=== PATIENT | female | born 1995 | race Caucasian/White ===

== ENCOUNTER 2020-08-10 17:24 | Inpatient (IN) | payer BC, OTHER ==
[~2020-08-10] VITALS: Ht 170.2 cm; Wt 82.2 kg
[2020-08-11 12:49] VITALS: BP 129/73
[2020-08-11] MEDS ORDERED: FENTANYL PF 100 MCG/2ML IV PRN (13:00)
[2020-08-11] MEDS ORDERED: D5%-LACTATED RINGERS 1,000 ML IV SCH (13:00)
[2020-08-11] MEDS ORDERED: CALCIUM CARBONATE 500 MG TAB.CHEW PO PRN (13:00)
[2020-08-11] MEDS ORDERED: TERBUTALINE 1 MG/ML, 1ML SQ PRN (13:00)
[2020-08-11] MEDS ORDERED: ONDANSETRON 2MG/ML, 2ML IVPush PRN (13:00)
[2020-08-11] MEDS ORDERED: TERBUTALINE 1 MG/ML, 1ML IVPush PRN (13:00)
[2020-08-11] MEDS ORDERED: OXYTOCIN 30U/ 0.9% NaCL 500ML 500 ML IV ONE (13:00)
[2020-08-11] MEDS ORDERED: FENTANYL PF 100 MCG/2ML IVPush PRN (13:00)
[2020-08-11] MEDS ORDERED: MISOPROSTOL 25 MCG TABLET VG PRN (13:00)
[2020-08-11] MEDS ORDERED: CALC0.25 PO (13:02)
[2020-08-11] MEDS ORDERED: LEVO137T3 PO (13:03)
[2020-08-11] MEDS ORDERED: PREN1TAB62 PO (13:03)
[2020-08-11 13:18] LABS: BASOPHILS % (AUTO) 1 % (0-1); EOSINOPHILS % (AUTO) 1 % (1-7); LYMPHOCYTES % (AUTO) 22 % (22-44); MEAN CORPUSCULAR HEMOGLOBIN 25.8 pg (27.0-34.8); MEAN CORPUSCULAR HGB CONC 32.7 g/dL (32.4-35.8); MEAN PLATELET VOLUME 9.6 fL (7.4-10.4); MONOCYTES % (AUTO) 5 % (2-9); NEUTROPHILS % (AUTO) 71 % (42-75); PLATELET COUNT 252 x10^3/uL (130-400); RED BLOOD COUNT 4.05 x10^6/uL (3.82-5.3); RED CELL DISTRIBUTION WIDTH 16.9 % (9.6-15.2)
[2020-08-11 13:24] LABS: MD NO
[2020-08-11] MEDS: LACTATED RINGERS 1,000 ML IV SCH (13:30)
[2020-08-11] MEDS ORDERED: OXYTOCIN 30U/ 0.9% NaCL 500ML 500 ML ONE (15:51)
[2020-08-11] MEDS ORDERED: NEWBORN KIT ONE (15:51)
[2020-08-11] MEDS ORDERED: OXYTOCIN 30U/ 0.9% NaCL 500ML 500 ML IV PRN (16:00)
[2020-08-11] MEDS ORDERED: LIDOCAINE 1%, 20ML ONE (16:16)
[2020-08-11] MEDS ORDERED: MISOPROSTOL 200 MCG TABLET ONE (16:16)
[2020-08-11] MEDS ORDERED: LACTATED RINGERS 1,000 ML INTUTE SCH (19:30)
[2020-08-11] MEDS ORDERED: LACTATED RINGERS 1,000 ML INTUTE PRN (19:30)
[2020-08-12] MEDS ORDERED: METHYLERGONOVINE 0.2 MG/ML IM ONE
[2020-08-12] MEDS ORDERED: LIDOCAINE/PF 1.5% EPI 1:200K, 10 ML ONE (00:47)
[2020-08-12] MEDS ORDERED: FENTANYL/BUPIV./NS/PF 250 ML EPIDCONT ONE (00:47)
[2020-08-12] MEDS ORDERED: EPHEDRINE 50 MG/ML, 1ML ONE (01:16)
[2020-08-12] MEDS ORDERED: EPHEDRINE 50 MG/ML, 1ML IVPush PRN ×2 (01:30→02:00)
[2020-08-12] MEDS ORDERED: LACTATED RINGERS 1,000 ML IVBOLUS PRN ×2 (01:30→02:00)
[2020-08-12] MEDS ORDERED: FENTANYL/BUPIV./NS/PF 250 ML EPIDCONT SCH ×2 (01:30→02:00)
[2020-08-12] MEDS ORDERED: NALOXONE 0.4 MG/ML, 1ML IVPush PRN (02:00)
[2020-08-12] MEDS ORDERED: LACTATED RINGERS 1,000 ML IV SCH (02:00)
[2020-08-12] MEDS ORDERED: LIDOCAINE/MPF 2%-EPI 1:200K, 20 ML ONE ×4 (07:17→17:43)
[2020-08-12] MEDS ORDERED: SODIUM CITRATE/CITRIC ACID 15 ML UDC ONE (08:13)
[2020-08-12] MEDS ORDERED: METOCLOPRAMIDE 5 MG/ML, 2ML ONE (08:13)
[2020-08-12] MEDS ORDERED: GENTAMICIN 100 MG in SODIUM CHLORIDE 0.9% 100 ML IV SCH (12:41)
[2020-08-12] MEDS: LACTATED RINGERS 1,000 ML IV SCH ×3 (15:32→19:00)
[2020-08-12] MEDS ORDERED: ACETAMINOPHEN 325 MG TABLET ONE (15:44)
[2020-08-12] MEDS: AMPICILLIN 2 GM in SODIUM CHLORIDE 0.9% 100 ML IV SCH ×2 (15:47→22:35)
[2020-08-12] MEDS ORDERED: GENTAMICIN PER PHARMACY MC PRN (16:00)
[2020-08-12] MEDS ORDERED: ACETAMINOPHEN 325 MG TABLET PO PRN (16:00)
[2020-08-12] MEDS ORDERED: OXYTOCIN 30U/ 0.9% NaCL 500ML 500 ML ONE (16:08)
[2020-08-12] MEDS ORDERED: GENTAMICIN 140 MG in SODIUM CHLORIDE 0.9% 50 ML IV ONE (16:30)
[2020-08-12] MEDS ORDERED: CALCIUM CARBONATE 500 MG TAB.CHEW ONE (16:47)
[2020-08-12] MEDS ORDERED: ONDANSETRON 2MG/ML, 2ML ONE ×2 (16:49→17:39)
[2020-08-12] MEDS ORDERED: PHARMACOKINETIC CONSULTATION MC ONE (17:00)
[2020-08-12] MEDS ORDERED: PHARMACOKINETIC MONITORING MC PRN (17:00)
[2020-08-12] MEDS ORDERED: LACTATED RINGERS 1,000 ML IVBOLUS ONE (17:30)
[2020-08-12] MEDS ORDERED: AZITHROMYCIN 500 MG in SODIUM CHLORIDE 0.9% 250 ML IV ONE (17:30)
[2020-08-12] MEDS ORDERED: OXYTOCIN 10 UNITS/ML, 1ML ONE (17:39)
[2020-08-12] MEDS ORDERED: DEXAMETHASONE 4 MG/ML, 1ML ONE (17:39)
[2020-08-12] MEDS ORDERED: morphine SULFATE/PF 0.5 MG/ML, 10ML ONE (17:40)
[2020-08-12] MEDS ORDERED: KETAMINE 10 MG/ML, 20ML ONE (17:53)
[2020-08-12] MEDS ORDERED: METOCLOPRAMIDE 5 MG/ML, 2ML IV ONE (18:00)
[2020-08-12] MEDS ORDERED: SODIUM CITRATE/CITRIC ACID 30 ML UDC PO ONE (18:00)
[2020-08-12] MEDS ORDERED: KETOROLAC 30 MG/1 ML IM SCH (19:00)
[2020-08-12] MEDS ORDERED: GLYCERIN ADULT SUPP PR PRN (19:00)
[2020-08-12] MEDS ORDERED: ONDANSETRON 2MG/ML, 2ML IV PRN (19:00)
[2020-08-12] MEDS ORDERED: BISACODYL 10 MG SUPP PR PRN (19:00)
[2020-08-12] MEDS ORDERED: MORPHINE SULFATE 4 MG/ML, 1ML IVPush PRN (19:00)
[2020-08-12] MEDS: OXYTOCIN 30U/ 0.9% NaCL 500ML 500 ML IV SCH (19:00)
[2020-08-12] MEDS ORDERED: morphine SULFATE 10 MG/ML, 1ML IVPush PRN (19:00)
[2020-08-12] MEDS ORDERED: METHYLERGONOVINE 0.2 MG/ML IM PRN (19:00)
[2020-08-12] MEDS ORDERED: MISOPROSTOL 200 MCG TABLET PR PRN (19:00)
[2020-08-12] MEDS ORDERED: SIMETHICONE 80 MG CHEW TAB ONE (19:52)
[2020-08-12] MEDS ORDERED: MEPERIDINE/PF 50 MG/ML ONE (19:52)
[2020-08-12] MEDS: MEPERIDINE/PF 50 MG/ML IVPush PRN (19:53)
[2020-08-12] MEDS: SIMETHICONE 80 MG CHEW TAB PO PRN (19:54)
[2020-08-12 20:40] VITALS: BP 103/61
[2020-08-12] MEDS ORDERED: OXYcodone/APAP 5/325MG TABLET PO PRN ×2 (22:30)
[2020-08-12 23:30] VITALS: BP 95/60
[2020-08-13] MEDS: GENTAMICIN 100 MG in SODIUM CHLORIDE 0.9% 100 ML IV SCH ×2 (01:05→10:09)
[2020-08-13] MEDS: KETOROLAC 30 MG/1 ML IV SCH ×4 (01:05→19:25)
[2020-08-13] MEDS: LACTATED RINGERS 1,000 ML IV SCH ×2 (03:00→05:00)
[2020-08-13] MEDS: OXYcodone/APAP 5/325MG TABLET PO PRN ×5 (04:21→22:39)
[2020-08-13 04:25] VITALS: BP 94/59
[2020-08-13] MEDS: AMPICILLIN 2 GM in SODIUM CHLORIDE 0.9% 100 ML IV SCH ×2 (04:25→12:05)
[2020-08-13] MEDS: OXYTOCIN 30U/ 0.9% NaCL 500ML 500 ML IV SCH (05:00)
[2020-08-13 05:58] LABS: BASOPHILS % (AUTO) 0 % (0-1); EOSINOPHILS % (AUTO) 0 % (1-7); LYMPHOCYTES % (AUTO) 8 % (22-44); MD NO; MEAN CORPUSCULAR HEMOGLOBIN 25.5 pg (27.0-34.8); MEAN CORPUSCULAR HGB CONC 32.4 g/dL (32.4-35.8); MEAN PLATELET VOLUME 9.6 fL (7.4-10.4); MONOCYTES % (AUTO) 6 % (2-9); NEUTROPHILS % (AUTO) 86 % (42-75); PLATELET COUNT 208 x10^3/uL (130-400); RED BLOOD COUNT 3.28 x10^6/uL (3.82-5.3); RED CELL DISTRIBUTION WIDTH 17.5 % (9.6-15.2)
[2020-08-13 06:08] LABS: CREATININE 0.96 mg/dL (0.55-1.02)
[2020-08-13 07:35] VITALS: BP 93/53
[2020-08-13] MEDS: PRENATAL VIT/IRON/FA 1 EACH TABLET PO SCH (09:08)
[2020-08-13] MEDS: DOCUSATE 100 MG CAPSULE PO PRN ×2 (09:08→19:25)
[2020-08-13] MEDS: SIMETHICONE 80 MG CHEW TAB PO PRN ×2 (09:09→18:47)
[2020-08-13 12:17] VITALS: BP 94/58
[2020-08-13 16:40] VITALS: BP 97/56
[2020-08-13 19:30] VITALS: BP 102/65
[2020-08-14] MEDS: KETOROLAC 30 MG/1 ML IV SCH ×4 (01:04→18:21)
[2020-08-14] MEDS: OXYcodone/APAP 5/325MG TABLET PO PRN ×4 (04:53→17:17)
[2020-08-14] MEDS ORDERED: DOCU100C33 PO (07:44)
[2020-08-14] MEDS ORDERED: OXYcodone/APAP 5/325MG PO (07:44)
[2020-08-14] MEDS ORDERED: IBUP-1223 PO (07:44)
[2020-08-14 07:45] VITALS: BP 112/69
[2020-08-14] MEDS: DOCUSATE 100 MG CAPSULE PO PRN (07:45)
[2020-08-14] MEDS: PRENATAL VIT/IRON/FA 1 EACH TABLET PO SCH (07:45)
[2020-08-14] MEDS: MEPERIDINE/PF 50 MG/ML IVPush PRN (07:46)
[2020-08-14] MEDS ORDERED: OXYC-302 PO (12:43)
[2020-08-14 21:00] VITALS: BP 111/71
[2020-08-15] MEDS ORDERED: IBUPROFEN 600 MG TABLET ONE (00:10)
[2020-08-15] MEDS: OXYcodone/APAP 5/325MG TABLET PO PRN ×3 (00:16→11:57)
[2020-08-15] MEDS ORDERED: IBUPROFEN 200 MG TABLET PO PRN (00:30)
[2020-08-15] MEDS ORDERED: IBUPROFEN 600 MG TABLET PO PRN (07:00)
[2020-08-15] MEDS: PRENATAL VIT/IRON/FA 1 EACH TABLET PO SCH (07:11)
[2020-08-15] MEDS: DOCUSATE 100 MG CAPSULE PO PRN (07:11)
== END 2020-08-15 12:30 | disposition home or self-care (01) | DRG 788 ==
LOC: LDIP 08-11 12:35 → 2NW 08-12 20:30
PROVIDERS: ADMIT Obstetrics & Gynecology; ATTEND Obstetrics & Gynecology
PROC: 10D00Z1 Extraction of Products of Conception, Low, Open Approach (ICD-10-PCS; principal; 2020-08-12)
DX: O41.1230 Chorioamnionitis, third trimester, not applicable or unspecified (principal); Z20.822 Contact with and (suspected) exposure to COVID-19; O32.4XX0 Maternal care for high head at term, not applicable or unspecified; Z37.0 Single live birth; Z3A.40 40 weeks gestation of pregnancy
CPT/HCPCS: 36415; J7121; 82565; 85025; 86592; 86850; 86900; 87635; G0378; J0290; J0456; J1100; J1885; J2175; J2274; J2405; J1580; J2210; J2590; J2765; J3010; J7050; J7120